=== PATIENT | male | born 1960 | race Caucasian/White ===

== ENCOUNTER 2023-07-25 19:02 | Emergency (ER) | payer SELFPAY ==
[~2023-07-25] VITALS: Ht 182.9 cm; Wt 86.0 kg
[2023-07-25 19:07] VITALS: BP 174/99; RESP 16; TEMP 98.9; O2SAT 97
[2023-07-25 19:14] VITALS: PULSE 101
[2023-07-25 20:41] LABS: BASOPHILS % 0.4 % (0.0-2.0); EOSINOPHILS % 0.3 % (0.0-5.0); HEMATOCRIT. 43.3 % (42.0-52.0); HEMOGLOBIN. 14.8 g/dL (14.0-18.0); LYMPHOCYTES % 12.5 % (20.0-50.0); MEAN CORPUSCULAR HEMOGLOBIN 32.2 pg (28.0-32.0); MEAN CORPUSCULAR HGB CONC 34.2 g/dL (31.0-37.0); MEAN CORPUSCULAR VOLUME 94.4 fL (80.0-94.0); MEAN PLATELET VOLUME 7.2 fl (7.4-10.4); MONOCYTES % 5.2 % (2.0-8.0); NEUTROPHILS % 81.6 % (40.0-76.0); PLATELET 313 x1000/uL (130-400); RED BLOOD CELL COUNT 4.59 mill/uL (4.7-6.1); RED CELL DISTRIBUTION WIDTH 12.4 % (11.6-14.6); WHITE BLOOD COUNT 10.7 x1000/uL (4.5-11.0)
[2023-07-25 20:49] LABS: ALANINE AMINOTRANSFERASE 9 IU/L (10-49); ALBUMIN 4.3 g/dL (3.2-4.8); ASPARTATE AMINOTRANSFERASE 12 IU/L (<34); BILIRUBIN TOTAL 0.4 mg/dL (0.1-1.0); CALCIUM 9.4 mg/dL (8.7-10.4); CARBON DIOXIDE 28 mEq/L (21-32); CHLORIDE 104 mEq/L (98-107); CREATININE 0.9 mg/dL (0.6-1.3); GLUCOSE 128 mg/dL (70-105); POTASSIUM 4.4 mEq/L (3.5-5.1); PROTEIN TOTAL 7.7 g/dL (6.0-8.3); SODIUM 137 mEq/L (136-145); UREA NITROGEN BLOOD 13 mg/dL (9-23)
[2023-07-25] MEDS ORDERED: OXYCODONE HCL/ACETAMINOPHEN 5/325MG TABLET PO ONE (21:45)
[2023-07-25] MEDS ORDERED: OXYC-100 PO (22:22)
[2023-07-25] MEDS ORDERED: KETOROLAC 60MG/2ML VIAL IM ONE (22:30)
== END 2023-07-25 23:46 | disposition home or self-care (01) ==
LOC: ER 19:02 → EDBD 19:02 → ER 23:46
DX: N23 Unspecified renal colic (principal); I10 Essential (primary) hypertension; F19.90 Other psychoactive substance use, unspecified, uncomplicated; Z87.442 Personal history of urinary calculi
CPT/HCPCS: 99284; 76700; 80053; 85025; 36415; J1885

== ENCOUNTER 2023-12-02 06:47 | Emergency (ER) | payer MEDICAID ==
[~2023-12-02] VITALS: Ht 182.9 cm; Wt 91.0 kg
[~2023-12-02 06:47] MED LIST: OXYC-100 PO
[2023-12-02 06:58] VITALS: O2SAT 96
[2023-12-02 07:58] LABS: HEMATOCRIT 44.1 % (42.0-52.0); HEMOGLOBIN 15.4 g/dL (14.0-18.0); MEAN CORPUSCULAR HEMOGLOBIN 32.7 pg (28.0-32.0); MEAN CORPUSCULAR HGB CONC 34.8 g/dL (31.0-37.0); MEAN CORPUSCULAR VOLUME 93.9 fL (80.0-94.0); PLATELET 286 x1000/uL (130-400); RED CELL DISTRIBUTION WIDTH 12.9 % (11.6-14.6); WHITE BLOOD COUNT 7.7 x1000/uL (4.5-11.0)
[2023-12-02 08:04] LABS: CHLORIDE 105 mEq/L (98-107); SODIUM 139 mEq/L (136-145)
[2023-12-02 08:05] LABS: CALCIUM 9.6 mg/dL (8.7-10.4); CARBON DIOXIDE 25 mEq/L (21-32)
[2023-12-02 08:10] LABS: CREATININE 1.1 mg/dL (0.6-1.3); GLUCOSE 114 mg/dL (70-105); UREA NITROGEN BLOOD 13 mg/dL (9-23)
[2023-12-02] MEDS: SODIUM CHLORIDE 0.9% 1,000 ML IV ONE ×2 (09:00→10:30)
[2023-12-02] MEDS ORDERED: KETOROLAC 30MG/ML VIAL IV ONE (09:00)
[2023-12-02 09:19] LABS: ALANINE AMINOTRANSFERASE 10 IU/L (10-49); ALBUMIN 4.6 g/dL (3.2-4.8); ASPARTATE AMINOTRANSFERASE 16 IU/L (<34)
[2023-12-02 09:20] LABS: BILIRUBIN DIRECT 0.3 mg/dL (<=3.0); BILIRUBIN TOTAL 0.9 mg/dL (0.1-1.0); PROTEIN TOTAL 7.5 g/dL (6.0-8.3)
[2023-12-02] MEDS: MORPHINE SULFATE 4 MG/ML INJ (FOR IV/IM USE) IV ONE (10:30)
[2023-12-02] MEDS: ONDANSETRON HCL 4MG/2ML INJ IV ONE (10:30)
[2023-12-02 11:56] VITALS: TEMP 97.5
[2023-12-02] MEDS: KETOROLAC 30MG/ML VIAL IV NR (13:40)
[2023-12-02 14:41] LABS: CLARITY URINE CLEAR (CLEAR); COLOR URINE YELLOW (YELLOW); GLUCOSE URINE NEGATIVE (NEGATIVE); KETONES URINE NEGATIVE (NEGATIVE); LEUKOCYTE ESTERASE URINE NEGATIVE (NEGATIVE); NITRITE URINE NEGATIVE (NEGATIVE); OCCULT BLOOD URINE TRACE (NEGATIVE); PH URINE 5.5 (4.5-8.0); PROTEIN URINE NEGATIVE (NEGATIVE); SPECIFIC GRAVITY URINE 1.011 (1.005-1.030); UROBILINOGEN URINE 0.2 E.U./dL (0.2-1.0)
[2023-12-02] MEDS ORDERED: ACET-2708 MT (15:07)
[2023-12-02] MEDS ORDERED: ONDA4TAB11 PO (15:07)
[2023-12-02] MEDS ORDERED: NAPR220C61 MT (15:07)
[2023-12-02] MEDS ORDERED: TAMS-11 MT (15:10)
[2023-12-02 15:26] LABS: MUCUS URINE 2+ /lpf (NONE/TRACE); RBC URINE 0-2 /hpf (0-2); SQUAMOUS EPITHELIAL CELL URINE NONE SEEN /lpf (RARE/1+); WBC URINE 0-2 /hpf (0-2)
[2023-12-02 15:27] LABS: BACTERIA URINE NONE SEEN
[2023-12-02 15:30] VITALS: BP 133/71; PULSE 89; RESP 19
== END 2023-12-02 16:36 | disposition home or self-care (01) ==
LOC: ER 06:59
DX: N13.30 Unspecified hydronephrosis (principal); N23 Unspecified renal colic; I10 Essential (primary) hypertension
CPT/HCPCS: 80076; 80048; 81003; 85027; 36415; 74176; 96361; 96374; 96375; 99285; J1885; J2405; J2270; J7030; Z7610 ×2